=== PATIENT | male | born 1980 | race Caucasian/White ===

== ENCOUNTER 2016-08-02 21:42 | Emergency (ER) | payer OTHER ==
[2016-08-02 22:00] VITALS: BP 142/89; PULSE 80; RESP 16; TEMP 98.5; O2SAT 97
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
--- NOTE | 2016-08-03 08:26 | CT ---
PROCEDURE: CT Cervical Spine without contrast HISTORY: [facility] COMPARISON: None available. TECHNIQUE: Axial computed tomography images were obtained of the cervical spine without the use of intravenous contrast. Coronal and sagittal reformatted images were created and reviewed. Radiation dose: Total exam DLP = 622.03 mGy-cm. This CT exam was performed using one or more of the following dose reduction techniques: Automated exposure control, adjustment of the mA and/or kV according to patient size, and/or use of iterative reconstruction technique. FINDINGS: VERTEBRAE: There is straightening of the cervical spine with loss of normal cervical lordosis. Vertebral alignment is normal. Vertebral height is maintained. There is no acute fracture or traumatic anterior listhesis. The craniocervical junction is normal. The atlantoaxial joint is normal. DISCS/SPINAL CANAL/NEURAL FORAMINA: There is mild degenerative disc disease at C6-7 with asymmetric left uncovertebral joint hypertrophy and moderate left neural foraminal stenosis. Otherwise, no significant neural foraminal or spinal canal stenosis at the other levels. PARASPINAL SOFT TISSUES: There is no prevertebral soft tissue thickening. OTHER FINDINGS: There is no apical pneumothorax. IMPRESSION: No acute fracture or traumatic anterior listhesis. A preliminary report was provided by [employer] [facility].
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
== END 2016-08-02 23:51 | disposition home or self-care (01) ==
LOC: H.ER 21:42
DX: S09.90XA Unspecified injury of head, initial encounter (principal); S39.012A Strain of muscle, fascia and tendon of lower back, initial encounter; V43.52XA Car driver injured in collision with other type car in traffic accident, initial encounter; Y92.410 Unspecified street and highway as the place of occurrence of the external cause; R07.89 Other chest pain

== ENCOUNTER 2016-08-07 12:31 | Emergency (ER) | payer SELFPAY ==
[2016-08-07 12:59] VITALS: BP 144/71; PULSE 67; RESP 16; TEMP 99.2; O2SAT 100
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
== END 2016-08-07 14:56 | disposition home or self-care (01) ==
LOC: H.ER 12:31
DX: F07.81 Postconcussional syndrome (principal); M25.562 Pain in left knee